=== PATIENT | female | born 1995 | race Caucasian/White ===

== ENCOUNTER 2019-08-06 18:28 | Emergency (ER) | payer SELFPAY ==
[2019-08-06 18:42] VITALS: BP 116/59; TEMP 98.2
[2019-08-06 21:40] VITALS: PULSE 98
== END 2019-08-06 21:40 | disposition home or self-care (01) ==
LOC: COL.ER 18:28
DX: O20.0 Threatened abortion (principal); Z3A.12 12 weeks gestation of pregnancy

== ENCOUNTER 2020-02-10 06:49 | Inpatient (IN) | payer SELFPAY ==
[~2020-02-10] VITALS: Ht 157.5 cm; Wt 70.0 kg
[2020-02-10] VITALS (58 sets, daily range): BP systolic 95–152; BP diastolic 50–84; PULSE 64–127; TEMP 97–99.7
--- NOTE | 2020-02-10 07:00 | NUR ---
PATIENT TO LR 5 FOR INDUCTION. PATIENT HERE WITH SPOUSE, LAURITA. THIS NURSE CALLED DIRECTOR OF EXTENSION WORK LINE FOR ADMISSION, EXPLAININATION OF CONSENTS, IV START. PATIENT ON EFM, VITALS OBTAINED. PATIENT CONSENTED TO COVID 19 SWAB. PATIENT DENIES LEAKING OF FLUID, BLEEDING OR CONTRACTIONS
[2020-02-10] MEDS ORDERED: PRENATAL (07:20)
--- NOTE | 2020-02-10 08:26 | NUR ---
0816 PATIENT AMBULATED TO BATHROOM
[2020-02-10 08:42] LABS: BASO % 0.3 % (0.0-2.0); EOS # 0.1 (0.0-0.7); EOS % 0.9 % (0-4.0); GRAN # 4.8 (1.4-6.5); GRAN % 62.5 % (42.2-75.2); HEMOGLOBIN 11.1 g/dl (12.5-16.0); LYMPH # 2.1 (1.2-3.4); LYMPH % 27.4 % (20.0-51.0); MEAN CELL VOLUME 95 fl (80.0-100.0); MEAN CORPUSCULAR HEMOGLOBIN 32 pg (27.0-31.0); MEAN CORPUSCULAR HGB CONC 34 g/dl (33.0-37.0); MEAN PLATELET VOLUME 9.7 fl (7.4-10.4); MONO # 0.7 (0.1-0.6); MONO % 8.4 % (1.7-9.3); PLATELET COUNT 224 K/mm3 (130-400); RED BLOOD COUNT 3.46 M/mm3 (4.10-5.30); REDCELL DISTRIBUTION WIDTH-CV 12.3 % (11.5-14.5)
--- NOTE | 2020-02-10 09:55 | NUR ---
0945- PATIENT AMBULATED TO THE BATHROOM
--- NOTE | 2020-02-10 13:54 | NUR ---
HAND COPER PHONE USED DURING EPIDURAL PROCEIDURE
--- NOTE | 2020-02-10 18:40 | NUR ---
FHT's with deceleration to 140's with contraction. Pt agrees to "feeling pressure" SVE as noted.
--- NOTE | 2020-02-10 19:25 | NUR ---
FHT's with baseline to 165-170, early decelerations to 150's. Maternal temp 99.7 orally. LR to bolus.
--- NOTE | 2020-02-10 20:05 | NUR ---
Pushing well, starting to crown with peak of pushing. Martinez catheter dc'd, Pushing stopped. 2005 Dr Velasquez called to come for delivery.
--- NOTE | 2020-02-10 20:16 | NUR ---
Dr Velasquez into room. Pt set up, prepped for delivery. [address] Velasquez.
--- NOTE | 2020-02-10 20:27 | NUR ---
placenta delivers intact with 3 vessell cord, lochia heavy,, fundal massage and retrieval of clots by Dr Velasquez with minimal effect on flow. Pitocin gtt at bolus rate. 2032 Methergine IM given. [address] Velasquez with retrieval of clots, flow contiues heavy.
--- NOTE | 2020-02-10 20:40 | NUR ---
Hemabate IM for contiued heavy flow. 2044 Cytotech 800mcg placed rectally by Dr Velasquez. Fundus firm, flow small to moderate. Pericare completed, ice pack to perineum, bed together.
--- NOTE | 2020-02-10 21:10 | NUR ---
emesis 150cc. 2115 Zofran 4mg slow IV push for nausea.
--- NOTE | 2020-02-10 23:30 | NUR ---
IV to INT. Epidural dc'd. Up to bathroom with careful, steady gait. Voids large amount, performs own pericare after instruction. To room via wheelchair per pt request.
[2020-02-11] VITALS (7 sets, daily range): BP systolic 79–128; BP diastolic 38–79; PULSE 88–104; TEMP 97.7–99.5
[2020-02-11 08:07] LABS: BASO % 0.3 % (0.0-2.0); EOS % 0.2 % (0-4.0); GRAN # 12.5 (1.4-6.5); GRAN % 81.2 % (42.2-75.2); LYMPH # 1.4 (1.2-3.4); MEAN CELL VOLUME 95 fl (80.0-100.0); MEAN CORPUSCULAR HGB CONC 34 g/dl (33.0-37.0); MEAN PLATELET VOLUME 8.9 fl (7.4-10.4); MONO # 1.4 (0.1-0.6); MONO % 8.8 % (1.7-9.3); PLATELET COUNT 173 K/mm3 (130-400); RED BLOOD COUNT 2.75 M/mm3 (4.10-5.30); REDCELL DISTRIBUTION WIDTH-CV 12.5 % (11.5-14.5)
[2020-02-11 08:09] LABS: HEMATOCRIT 26.2 % (37.0-47.0); MEAN CORPUSCULAR HEMOGLOBIN 33 pg (27.0-31.0)
--- NOTE | 2020-02-11 08:51 | NUR ---
Initial visit attempt; Sami speaking family, Pulp Operator left card of congratulations and God's blessings for the of their son.
[2020-02-12] MEDS ORDERED: IBU800 M1 PO (07:39)
[2020-02-12 08:30] VITALS: BP 96/44; PULSE 90; TEMP 97.8
== END 2020-02-12 12:45 | disposition home or self-care (01) | DRG 807 ==
LOC: LDR 06:49 → OB 06:49
PROVIDERS: ADMIT Student in an Organized Health Care Education/Training Program
PROC: 10E0XZZ Delivery of Products of Conception, External Approach (ICD-10-PCS; principal; 2020-02-10)
PROC: 0KQM0ZZ Repair Perineum Muscle, Open Approach (ICD-10-PCS; 2020-02-10)
PROC: 10907ZC Drainage of Amniotic Fluid, Therapeutic from Products of Conception, Via Natural or Artificial Opening (ICD-10-PCS; 2020-02-10)
PROC: 3E033VJ Introduction of Other Hormone into Peripheral Vein, Percutaneous Approach (ICD-10-PCS; 2020-02-10)
DX: O99.824 Streptococcus B carrier state complicating childbirth (principal); Z37.0 Single live birth; Z3A.39 39 weeks gestation of pregnancy; O70.1 Second degree perineal laceration during delivery; O72.1 Other immediate postpartum hemorrhage
CPT/HCPCS: J2210; J2405; J2590; J2795; J3370; J7050; J7120

== ENCOUNTER 2022-09-16 12:17 | Outpatient (CLI) | payer SELFPAY ==
[~2022-09-16] VITALS: Ht 160 cm; Wt 75.5 kg
[~2022-09-16 12:17] MED LIST: IBU800 M1 PO; PRENATAL
--- NOTE | 2022-09-16 12:25 | NUR ---
1225- Pt presents ambulatory, sent over from the office, was 3cm per Dr Velasquez. Pt changes into gown. Cindi vice president industrial relations at bedside. 1230- Pt into bed, EFM and TOCO on, difficulty tracing both babies. Clayton, RN and this RN at bedside attempting. 1250- Dr Bustos at nurses station, comes to bedside for US assist. FHRs found and tracing well. VSS. Assessments completed. 1315- SVE by this RN, unchanged from Dr Guerra exam in office. 1325- Dr Velasquez at nurses station, updated that SVE unchanged. UCs noted on monitor every 5-7 mins. Pt appears comfortable with them. Dr Bustos performed bedside US due to difficulty tracing 2 heart beats, Baby B found to be breech. places orders in [employer].
[2022-09-16 13:00] VITALS: BP 127/62; PULSE 104; TEMP 99.7
[2022-09-16] MEDS ORDERED: ASPIRIN 81M81 MG/TA2 PO (13:10)
--- NOTE | 2022-09-16 14:03 | NUR ---
1340- THIS NURSE IN ROOM, INSTRUMENTATION AND CONTROL TECHNICIAN IN USE, ID NUMBER [id number] ([facility]). EXPLAINED TO PT VIA INSTRUMENTATION AND CONTROL TECHNICIAN OF IV START, IVF, AND THAT I AM GOING TO ADMINISTER BETAMETHASONE AND WHY THIS IS NECESSARY. PT VERBALIZED UNDERSTANDING VIA THE INSTRUMENTATION AND CONTROL TECHNICIAN. 1342- IV STARTED. THIS NURSE OUT OF ROOM TO GET IVF AND BETAMETHASONE. INSTRUMENTATION AND CONTROL TECHNICIAN REMAINS ONLINE. 1352- IVF STARTED. DR DAILY IN ROOM TO PERFORM BEDSIDE US FOR POSITIONING OF BABIES. BABY A DETERMINED TO BE VERTEX AND BABY B TRANSVERSE PER DR. DAILY. PT INSTRUCTED BY DR. DAILY VIA THE INSTRUMENTATION AND CONTROL TECHNICIAN THAT BETAMETHASONE WILL BE GIVEN AND SHE WOULD LIKE THE BAG OF FLUIDS TO INFUSE. IF SVE UNCHANGED AT THAT TIME SHE MAY GO HOME BUT WILL NEED TO RETURN TO [facility] TOMORROW FOR 2ND DOSE OF BETAMETHASONE AND TO HAVE A BPP. THE SECOND CRUSHER FROM THE OFFICE WILL CONTACT HER TO SCHEDULE THE BPP FOR TOMORROW. ALSO INSTRUCTED THAT SHE WOULD NEED TO RETURN TO THE UNIT IF HER WATER BREAKS, SHE HAS CONSISTENT CTXs OR VAGINAL BLEEDING. THE GOAL IS THAT SHE CAN GET TO 37WKS GESTATION. IF BABIES WERE BOTH HEAD DOWN AT THAT TIME SHE COULD ATTEMPT A VAGINAL DELIVERY BUT IF BABY B REMAINS TRANSVERSE SHE WOULD REQUIRE A C/S. PT VERBALIZED UNDERSTANDING VIA THE INSTRUMENTATION AND CONTROL TECHNICIAN. 1400- DR. DAILY OUT OF ROOM. 1403- BETAMETHASONE GIVEN, SEE EMAR.
[2022-09-16 14:51] VITALS: BP 110/63; PULSE 96; TEMP 98.6
--- NOTE | 2022-09-16 15:00 | NUR ---
1434- [place] line installer repairer at bedside. SVE by this RN, unchanged. IV removed without difficulty. Discussed labor precautions, fluid intake, need to return to office tomorrow at 1400 for second Betamethasone dose. Questions asked and answered. Pt verbalized understanding. EFM and TOCO off. Pt up to change into street clothers. 1500- Discharge paperwork given and explained. Pt denies questions. Ambulates off unit independently with friend.
== END 2022-09-16 15:00 | disposition home or self-care (01) ==
LOC: LDRO 12:17
DX: Z34.93 Encounter for supervision of normal pregnancy, unspecified, third trimester (principal); Z3A.34 34 weeks gestation of pregnancy
CPT/HCPCS: J0702; J7120

== ENCOUNTER 2022-10-01 06:35 | Inpatient (IN) | payer SELFPAY ==
[2022-10-01] VITALS (31 sets, daily range): BP systolic 97–190; BP diastolic 52–129; PULSE 67–106; TEMP 98.4–99.3
[~2022-10-01] VITALS: Ht 160 cm; Wt 75.5 kg
[~2022-10-01 06:35] MED LIST changes: +ASPIRIN 81M81 MG/TA2 PO
--- NOTE | 2022-10-01 06:45 | NUR ---
PT AMBULATORY TO LR2 WITH FAMILY . CHANGED INTO CLEAN GOWN. SKILLED HELPER USED BY THIS RN FOR EQUATORIAL GUINEAN SPEAKING PT. FHR MONITORS/TOCO APPLIED. PT DENIES VAGINAL BLEEDING, REGULAR CONTRACTIONS, LEAKING OF FLUID, OR DECREASED MOVEMENT. PLAN OF CARE DISCUSSED. PT VERBALIZES UNDERSTANDING. CALL LIGHT WITHIN REACH.
[2022-10-01 07:50] LABS: BASO % 0.4 % (0.0-2.0); EOS # 0.1 K/mm3 (0.0-0.7); EOS % 0.8 % (0.0-4.0); GRAN # 4.4 K/mm3 (1.4-6.5); GRAN % 59.7 % (42.2-75.2); HEMATOCRIT 36.7 % (37.0-47.0); HEMOGLOBIN 12.6 g/dl (12.5-16.0); LYMPH # 2.1 K/mm3 (1.2-3.4); MEAN CELL VOLUME 95 fl (80.0-100.0); MEAN CORPUSCULAR HEMOGLOBIN 33 pg (27-31); MEAN CORPUSCULAR HGB CONC 34 g/dl (33.0-37.0); MEAN PLATELET VOLUME 10.2 fl (7.4-10.4); MONO # 0.7 K/mm3 (0.1-0.6); MONO % 9.3 % (1.7-9.3); PLATELET COUNT 217 K/mm3 (130-400); RED BLOOD COUNT 3.88 M/mm3 (4.10-5.30)
--- NOTE | 2022-10-01 08:15 | NUR ---
[id number] DR DAILY IN ROOM DISCUSSING PLAN OF CARE. ULTRASOUND CONFIRMS VERTEX PRESENTATION OF TWINS. DR DAILY CONFIRMS PLACEMENT OF FHR MONITORS.
--- NOTE | 2022-10-01 08:35 | NUR ---
ADJUSTING FHR MONITOR FOR BABY B. AUDIBLE MOVEMENT OF AND FHR HEARD.
--- NOTE | 2022-10-01 09:30 | NUR ---
[id number] PT IN BATHROOM PT REQUESTED EPIDURAL. 0859 PT SITTING UP ON EDGE OF BED FOR EPIDURAL PLACEMENT. VIDEO KNUCKLE BENDER PRESENT. HERBIE HOLLIDAY CRNA AT BEDSIDE WITH THIS RN AND PT'S FAMILY. HERBIE HOLLIDAY CRNA PLACES EPIDURAL 0909 SINGLE SHOT GIVEN PT TOLERATES PROCEDURE WELL. 0915 PT REPOSITIONED. SAFETY PRECAUTIONS DISCUSSED. CALL LIGHT WITHIN REACH. PLAN OF CARE DISCUSSED. PT VERBALIZES UNDERSTANDING.
--- NOTE | 2022-10-01 11:05 | NUR ---
1050 BLOOD PRESSURE OF 190/129 TAKES ON MONITOR. PT SHAKING DUE TO ANXIETY AND HORMONES. 1101 THIS RN TAKES ANOTHER BLOOD PRESSURE 121/76. 190/129 BLOOD PRESSURE INACCURATE DUE TO MATERNAL SHAKING.
--- NOTE | 2022-10-01 11:05 | NUR ---
1102 THIS RN USES TECHNICAL SUPPORT SPECIALIST TO EXPLAIN BLOOD PRESSURE SITUATION TO PT. PT'S FAMILY EXPRESSED CONCERN ABOUT THE BLOOD PRESSURE. THIS RN REASSURES PT AND FAMILY WITH NEW VITAL SIGNS TAKEN. THIS RN NOTIFIES PT THAT DR DAILY WILL BE OVER TO BREAK WATER AROUND 1130. PT VERBALIZES UNDERSTANDING. NO QUESTIONS OR NEEDS AT THIS TIME.
--- NOTE | 2022-10-01 12:57 | NUR ---
1213 DR DAILY ON UNIT 1215 DR DAILY SVE . AROM AT THIS TIME. DR DAILY DISCUSSES PLAN OF CARE WITH PT. PT VERBALIZES UNDERSTANDING. [address] DAILY -[address] DAILY ORDERS PITOCIN TO BE TURNED UP. PITOCIN AT 10MU.
--- NOTE | 2022-10-01 14:15 | NUR ---
1324 MOVING PT FROM LR2 TO OR FOR DELIVERY 1335 FHR MONITOR ON IN OR. [address] DAILY 9/100/0. [address] DAILY SVE 10/100/+1. PT STARTS PUSHING WITH CONTRACTION. 1344 SPONTANEOUS VAGINAL DELIVERY OF BABY A. CORD CLAMPED BY DR DAILY AND CUT BY FATHER OF BABY. INFANT STIMULATED AND BULB SUCTIONED. AMANDA HARMONY RN TAKES OVER CARE OF . DR RODRIGUEZ USING ULTRASOUND TO CONFIRM BABY B'S POSITION. BABY B IS VERTEX WITH HAND NEAR FACE. DR RODRIGUEZ AND DR DAILY LETTING CONTRACTIONS PASS WITHOUT AROM OR PUSHING TO LET BABY B MOVE HAND. 1357 DR DAILY AROM OF BABY B. 1405 PT BEGINS PUSHING WITH CONTRACTIONS 1406 SPONTANEOUS VAGINAL DELIVERY OF BABY B. CORD CLAMPED BY DR DAILY AND CUT BY FATHER OF BABY. INFANT BULB SUCTIONED AND STIMULATED. SOLANGE MCFARLAND RN TAKES OVER CARE OF . 1414 SPONTANEOUS DELIVERY OF PLACENTA. PITOCIN BOLUS STARTED PER PROTOCOL. FUNDAL MASSAGE DONE BY DR DAILY. SMALL AMT OF BLEEDING NOTED. FUNDUS FIRM/MIDLINE. PT REPOSITIONED. TRANSFERRED TO LABOR BED. PT TRANSPORTED BACK TO LR2. THIS RN DISCUSSES PLAN OF CARE AND SAFETY PRECAUTIONS. PT VERALIZES UNDERSTANDING.
--- NOTE | 2022-10-01 17:40 | NUR ---
THIS RN USES HOUSE SERVANT TO COMMUNICATE WITH PT. THIS RN HELPS PT TO BEDSIDE. PT SITTING UP ON BEDSIDE. THIS RN REMOVES EPIDURAL CATHETER. PT STANDBY ASSIST TO BATHROOM. PT VOIDS. CHANGED INTO CLEAN GOWN. SOPHIA CARE DONE. CLEAN PAD AND UNDERWEAR PLACED. PT STANDBY ASSIST TO ROOM 212. PT ORIENTED TO ROOM. PT VERBALIZES UNDERSTANDING. CALL LIGHT WITHIN REACH.
[2022-10-02 02:00] VITALS: BP 118/68; PULSE 72; TEMP 98.1
[2022-10-02 07:52] VITALS: BP 98/55; PULSE 82; TEMP 97.2
[2022-10-02] MEDS ORDERED: IBU800 M1 PO (10:49)
[2022-10-02 12:30] VITALS: BP 113/59; PULSE 76; TEMP 97.7
[2022-10-02 17:30] VITALS: BP 101/74; PULSE 71; TEMP 97.9
[2022-10-02 21:00] VITALS: BP 112/57; PULSE 75; TEMP 97.8
[2022-10-03 07:30] VITALS: BP 107/57; PULSE 69; TEMP 97.7
--- NOTE | 2022-10-03 11:30 | NUR ---
1130 - DISCHARGE INSTRUCTIONS REVIEWED WITH PATIENT AND SPOUSE USING OIL RECOVERY UNIT OPERATOR. QUESTIONS ANSWERED. CARSEAT STRAPS CHECKED FOR BOTH BABIES. DISCHARGE INSTRUCTIONS REVIEWED.
== END 2022-10-03 11:45 | disposition home or self-care (01) | DRG 788 ==
LOC: LDR 06:35 → OB 15:02
PROVIDERS: ADMIT Student in an Organized Health Care Education/Training Program
PROC: 10D00Z1 Extraction of Products of Conception, Low, Open Approach (ICD-10-PCS; principal; 2022-10-01)
DX: O30.033 Twin pregnancy, monochorionic/diamniotic, third trimester (principal); Z3A.36 36 weeks gestation of pregnancy; Z37.2 Twins, both liveborn; Z75.8 Other problems related to medical facilities and other health care
CPT/HCPCS: J2590; J2795; J7120

== ENCOUNTER 2023-09-04 21:35 | Emergency (ER) | payer SELFPAY ==
[~2023-09-04] VITALS: Ht 162.6 cm; Wt 72.7 kg
[2023-09-04 21:49] VITALS: BP 120/78; TEMP 99.5
[2023-09-05 01:11] LABS: BASO % 0.5 % (0.0-2.0); EOS # 0.2 K/mm3 (0.0-0.7); EOS % 2.4 % (0.0-4.0); GRAN # 3.8 K/mm3 (1.4-6.5); GRAN % 48.7 % (42.2-75.2); HEMATOCRIT 37.8 % (37.0-47.0); HEMOGLOBIN 12.9 g/dl (12.5-16.0); LYMPH # 3.3 K/mm3 (1.2-3.4); LYMPH % 41.7 % (20.0-51.0); MEAN CELL VOLUME 92 fl (80.0-100.0); MEAN CORPUSCULAR HEMOGLOBIN 31 pg (27-31); MEAN CORPUSCULAR HGB CONC 34 g/dl (33.0-37.0); MEAN PLATELET VOLUME 8.9 fl (7.4-10.4); MONO # 0.5 K/mm3 (0.1-0.6); MONO % 6.6 % (1.7-9.3); PLATELET COUNT 303 K/mm3 (130-400); RED BLOOD COUNT 4.13 M/mm3 (4.10-5.30); REDCELL DISTRIBUTION WIDTH-CV 12.6 % (11.5-14.5)
[2023-09-05 01:25] LABS: BILIRUBIN,TOTAL 0.3 mg/dL (0.2-1.2); CALCIUM 9.7 mg/dL (8.4-10.2); CREATININE, serum 0.8 mg/dL (0.57-1.11); POTASSIUM 3.8 mmol/L (3.5-4.5); TOTAL PROTEIN 7.9 gm/dL (6.2-8.1)
[2023-09-05 02:41] VITALS: PULSE 84
== END 2023-09-05 02:41 | disposition home or self-care (01) ==
LOC: COL.ER 21:35
PROVIDERS: Emergency Medicine
DX: K92.1 Melena (principal); K64.9 Unspecified hemorrhoids

== ENCOUNTER 2024-02-18 21:54 | Emergency (ER) | payer SELFPAY ==
[~2024-02-18] VITALS: Ht 162.6 cm; Wt 72.7 kg
[2024-02-18 21:58] VITALS: BP 108/59; TEMP 98.9
[2024-02-18] MEDS ORDERED: Acetaminophen 325 MG TAB PO ONE (22:45)
[2024-02-18] MEDS ORDERED: Ibuprofen 600 MG TAB PO ONE (22:45)
[2024-02-18 22:56] LABS: URINE APPEARANCE CLOUDY (CLEAR/HAZY); URINE BLOOD NEGATIVE (NEGATIVE); URINE COLOR Dark Yellow (YELLOW); URINE GLUCOSE NEGATIVE (NEGATIVE); URINE KETONE TRACE (NEGATIVE); URINE NITRATE NEGATIVE (NEGATIVE); URINE PROTEIN(semi-quant) TRACE (NEGATIVE)
[2024-02-18 23:01] LABS: COLLECTION METHOD CLEAN CATCH
[2024-02-18 23:37] VITALS: PULSE 90
== END 2024-02-18 23:38 | disposition home or self-care (01) ==
LOC: COL.ER 21:54
PROVIDERS: Nurse Practitioner Primary Care
DX: R53.81 Other malaise (principal)